=== PATIENT | male | born 1960 | race Caucasian/White ===

== ENCOUNTER 2018-06-12 08:46 | Day surgery (SDC) | payer OTHER ==
[~2018-06-12] VITALS: Ht 175.3 cm; Wt 108.9 kg
[~2018-06-12 08:46] MED LIST: GLUCOTROL5 MG PO; METFORMIN500 M1 PO; ZESTRIL20 MG PO
[2018-06-12 09:04] VITALS: BP 161/83
[2018-06-12 15:05] VITALS: BP 155/80
== END 2018-06-12 15:00 | disposition home or self-care (01) ==
LOC: DS 08:46 → OR 09:30 → DS 11:00 → OR 11:00 → DS 15:00
PROVIDERS: Neuromusculoskeletal Medicine, Sports Medicine
PROC: 0MN10ZZ Release Right Shoulder Bursa and Ligament, Open Approach (ICD-10-PCS; 2018-06-12)
PROC: 0LQ10ZZ Repair Right Shoulder Tendon, Open Approach (ICD-10-PCS; principal; 2018-06-12 09:30)
DX: M75.101 Unspecified rotator cuff tear or rupture of right shoulder, not specified as traumatic (principal); E11.9 Type 2 diabetes mellitus without complications; I10 Essential (primary) hypertension; E66.9 Obesity, unspecified
CPT/HCPCS: 82962; J0690; J1170; J1200; J3010; J3490

== ENCOUNTER 2018-10-10 10:16 | Emergency (ER) | payer OTHER ==
[~2018-10-10] VITALS: Ht 172.7 cm; Wt 106.6 kg
[2018-10-10 10:19] VITALS: Ht 172.7 cm; Wt 106.6 kg
[2018-10-10 10:53] LABS: BASOPHIL % 0.4 % (0-2); PLATELET COUNT 281 x10^3mcL (130-400); RED CELL DISTRIBUTION WIDTH 13.4 % (11.5-14.5)
[2018-10-10 11:24] LABS: ALBUMIN 3.8 g/dL (3.4-5.0); BILIRUBIN TOTAL 0.7 mg/dL (0.20-1.00); CALCIUM 8.9 mg/dL (8.5-10.1); POTASSIUM SERUM 4.2 mmol/L (3.5-5.1); TOTAL PROTEIN, SERUM 7.6 g/dL (6.4-8.2)
[2018-10-10 11:49] LABS: CREATININE SERUM 1.4 mg/dL (0.7-1.3)
[2018-10-10 12:18] VITALS: BP 138/83
== END 2018-10-10 12:18 | disposition home or self-care (01) ==
LOC: ED 10:16
PROVIDERS: Emergency Medicine
DX: R10.13 Epigastric pain (principal); R10.12 Left upper quadrant pain; I10 Essential (primary) hypertension; E11.9 Type 2 diabetes mellitus without complications; Z86.19 Personal history of other infectious and parasitic diseases
CPT/HCPCS: J1885; J7030